=== PATIENT | male | born 1955 | race Caucasian/White ===

== ENCOUNTER 2020-03-31 10:05 | Emergency (ER) | payer OTHER, MEDICAID ==
[~2020-03-31] VITALS: Ht 165.1 cm; Wt 72.6 kg
--- NOTE | 2020-03-31 10:14 | NUR ---
PT IS IN ROOM #1B. DR MARTINEZ EVALUATED THE PT.
[2020-03-31] MEDS: IV NORMAL SALINE 1000 ML BAG IV ONE (10:15)
[2020-03-31] MEDS ORDERED: ASPI81TA31 PO (10:16)
[2020-03-31] MEDS ORDERED: METF-442 PO (10:16)
[2020-03-31] MEDS ORDERED: BP MED (10:28)
[2020-03-31 10:30] LABS: BASOPHILS # (AUTO) 0.1 K/uL (0.0-8.0); BASOPHILS % (AUTO) 0.9 % (0.0-2.0); EOSINOPHILS # (AUTO) 0.2 K/uL (0.0-0.7); EOSINOPHILS % (AUTO) 2.3 % (0.0-7.0); HEMATOCRIT 41.4 % (36.7-47.1); HEMOGLOBIN 12.8 g/dL (12.5-16.3); LYMPHOCYTES # (AUTO) 2.9 K/uL (20.0-40.0); LYMPHOCYTES % (AUTO) 35.7 % (20.5-51.5); MEAN CORPUSCULAR HGB CONC 31 g/dL (32.5-36.3); MEAN CORPUSCULAR VOLUME 71.1 fL (73.0-96.2); MONOCYTES # (AUTO) 0.5 K/uL (2.0-10.0); MONOCYTES % (AUTO) 6.3 % (0.0-11.0); NEUTROPHILS # (AUTO) 4.5 K/uL (1.8-8.9); NEUTROPHILS % (AUTO) 54.8 % (38.5-71.5); PLATELET COUNT (AUTO) 224 K/uL (152-348); RED BLOOD CELL COUNT(AUTO) 5.82 MIL/uL (4.06-5.63); WHITE BLOOD COUNT (AUTO) 8.3 K/uL (3.6-10.2)
[2020-03-31 10:58] LABS: BILIRUBIN,DIRECT 0.1 mg/dL (0.0-0.2); BILIRUBIN,TOTAL 0.4 mg/dL (0.2-1.0); POTASSIUM 4.7 mmol/L (3.5-5.1); TOTAL PROTEIN, SERUM 6.8 g/dL (6.4-8.2)
[2020-03-31] MEDS ORDERED: ONDANSETRON 4 MG/2 ML VIAL ONE (11:16)
[2020-03-31] MEDS: ONDANSETRON 4 MG/2 ML VIAL IV ONE (11:32)
[2020-03-31] MEDS: ASPIRIN 81 MG TAB.CHEW PO ONE (11:32)
[2020-03-31] MEDS ORDERED: TAMS-3 PO (11:35)
[2020-03-31] MEDS ORDERED: LOSA100T31 PO (11:35)
[2020-03-31] MEDS ORDERED: HYDR12.517 PO (11:35)
[2020-03-31] MEDS ORDERED: D3 VITAMIN PO (11:35)
[2020-03-31] MEDS ORDERED: ASPIRIN 81 MG TAB.CHEW ONE (11:57)
[2020-03-31] MEDS: METFORMIN HCL 500 MG TABLET PO ONE (16:24)
[2020-03-31] MEDS ORDERED: METFORMIN HCL 500 MG TABLET ONE (16:25)
--- NOTE | 2020-03-31 17:11 | NUR ---
PT IS GOING TO BE TRANSFERED VIA [facility] TO [facility], ROOM #523A. ADMITTING MD IS DR CORTES. REPORT WAS GIVEN TO MICHELLE DE DIOS ([phone]). [facility] REJI IS 1730. PT IS RESTING COMFOTRTABLY IN BED, NO S/S OF ACUTE DISTRESS. CONTINUE TO MONITOR THE PT.
--- NOTE | 2020-03-31 17:43 | NUR ---
PT WAS TRANSFERED TO [facility] VIA [facility]. REPORT WAS GIVEN TO AMBULANCE RN.
== END 2020-03-31 17:44 | disposition short-term general hospital (02) ==
LOC: ER 10:05
DX: R41.82 Altered mental status, unspecified (principal); R00.1 Bradycardia, unspecified; I44.0 Atrioventricular block, first degree; Z86.73 Personal history of transient ischemic attack (TIA), and cerebral infarction without residual deficits; J45.909 Unspecified asthma, uncomplicated; I10 Essential (primary) hypertension; E11.9 Type 2 diabetes mellitus without complications; Z79.84 Long term (current) use of oral hypoglycemic drugs; Z79.82 Long term (current) use of aspirin; Z82.49 Family history of ischemic heart disease and other diseases of the circulatory system
CPT/HCPCS: 36415; 70450; 71045; 80048; 80076; 83605; 83735; 83880; 84484; 85025; 87426; 93005; 96361; 96374; 99285; J2405; 70030-TC; A4663

== ENCOUNTER 2020-08-24 06:27 | Inpatient (IN) | payer OTHER, MEDICAID ==
[~2020-08-24] VITALS: Ht 170.2 cm; Wt 73.5 kg
[~2020-08-24 06:27] MED LIST: ASPI81TA31 PO; BP MED; D3 VITAMIN PO; HYDR12.517 PO; LOSA100T31 PO; METF-442 PO; TAMS-3 PO
[2020-08-24] MEDS ORDERED: HYDR12.55 PO (06:46)
--- NOTE | 2020-08-24 06:54 | NUR ---
Patient BIB [facility] from home for a near syncope/syncopal event. Patient states that he ambulated to the bathroom approx 30 min [employer] and felt as if he was going to "pass out" when urinating. Patient A/OX4. Speech is clear, and speaks in complete sentences. No acute neuro deficits noted. Denies any cp, palpitations, n/v/d. Denies any KO, or any trauma.
[2020-08-24] MEDS ORDERED: IV NORMAL SALINE 1000 ML BAG IV ONE (07:00)
[2020-08-24 07:04] LABS: BASOPHILS # (AUTO) 0.1 K/uL (0.0-8.0); BASOPHILS % (AUTO) 0.8 % (0.0-2.0); EOSINOPHILS # (AUTO) 0.3 K/uL (0.0-0.7); EOSINOPHILS % (AUTO) 2.8 % (0.0-7.0); HEMATOCRIT 43.3 % (36.7-47.1); HEMOGLOBIN 13.7 g/dL (12.5-16.3); LYMPHOCYTES # (AUTO) 3.8 K/uL (20.0-40.0); LYMPHOCYTES % (AUTO) 40.8 % (20.5-51.5); MEAN CORPUSCULAR HEMOGLOBIN 22.5 uug (23.8-33.4); MEAN CORPUSCULAR HGB CONC 32 g/dL (32.5-36.3); MEAN CORPUSCULAR VOLUME 71.3 fL (73.0-96.2); MONOCYTES # (AUTO) 0.6 K/uL (2.0-10.0); MONOCYTES % (AUTO) 6.6 % (0.0-11.0); NEUTROPHILS # (AUTO) 4.6 K/uL (1.8-8.9); PLATELET COUNT (AUTO) 220 K/uL (152-348); RED BLOOD CELL COUNT(AUTO) 6.07 MIL/uL (4.06-5.63); WHITE BLOOD COUNT (AUTO) 9.3 K/uL (3.6-10.2)
[2020-08-24 07:11] LABS: CREATININE 0.9 mg/dL (0.6-1.3); POTASSIUM 3.8 mmol/L (3.5-5.1)
--- NOTE | 2020-08-24 07:17 | NUR ---
Handoff report given to MICHELLE Bal for continuity of care.
[2020-08-24 07:28] LABS: BILIRUBIN,DIRECT 0.1 mg/dL (0.0-0.2); BILIRUBIN,TOTAL 0.5 mg/dL (0.2-1.0); TOTAL PROTEIN, SERUM 7.1 g/dL (6.4-8.2)
--- NOTE | 2020-08-24 07:58 | NUR ---
Per Dr. Montalvo pt is for tele admission, spoke with tele floor and nursing blood donor recruiter supervisor, there are no beds available and pt will be held in ER until further notice.
--- NOTE | 2020-08-24 09:00 | NUR ---
Pt is awake, alert and oriented. Pt is eating breakfast. NAD noted at this time, pending tele admission.
--- NOTE | 2020-08-24 13:00 | NUR ---
Pt is eating lunch. NAD noted, pending tele admission.
--- NOTE | 2020-08-24 13:30 | NUR ---
Report given to Monica Ortiz.
--- NOTE | 2020-08-24 13:55 | NUR ---
Patient to bathroom independently. Denies any acute distress. Ambulatory and stable. Vital signs within acceptable limits. 130/70-75 [id number]% in room air.
[2020-08-24] MEDS ORDERED: HYDROCHLOROTHIAZIDE 12.5 MG CAPSULE PO SCH (14:15)
[2020-08-24] MEDS ORDERED: TAMSULOSIN HCL 0.4 MG CAP.SR.24H PO SCH ×2 (14:15→21:00)
--- NOTE | 2020-08-24 15:05 | NUR ---
Patient remained in room. Health plan stated that they will transfer since earlier. Awaiting placement; and admitting discussed the bed issue with health plan and requested immediate transfer. Patient denies any pain or discomfort.
[2020-08-24] MEDS: ASPIRIN 81 MG TAB.CHEW PO SCH (15:15)
[2020-08-24] MEDS: HYDROCHLOROTHIAZIDE 25 MG TABLET PO SCH (15:15)
[2020-08-24] MEDS: LOSARTAN POTASSIUM 50 MG TABLET PO SCH (17:00)
[2020-08-24] MEDS: METFORMIN HCL 500 MG TABLET PO SCH (17:00)
--- NOTE | 2020-08-24 18:26 | NUR ---
[facility] transplant case manager called to provide authorization for admission # [id number] (Shelby Naylor). Patient resting comfortably. Medications given as ordered.
[2020-08-24] MEDS ORDERED: METFORMIN HCL 500 MG TABLET ONE (18:34)
[2020-08-24] MEDS ORDERED: HYDROCHLOROTHIAZIDE 25 MG TABLET ONE (18:34)
[2020-08-24] MEDS ORDERED: ASPIRIN 81 MG TAB.CHEW ONE (18:34)
--- NOTE | 2020-08-24 19:08 | NUR ---
Assumed care of patient. No acute distress noted. VSS
[2020-08-24] MEDS ORDERED: ONDANSETRON 4 MG/2 ML VIAL IV PRN (19:30)
[2020-08-24] MEDS ORDERED: MAGNESIUM HYDROXIDE 30 ML LIQUID UDC PO PRN (19:30)
[2020-08-24] MEDS ORDERED: ACETAMINOPHEN 325 MG TABLET PO PRN (19:30)
[2020-08-24] MEDS ORDERED: Z GUARD REMEDY PASTE 57 GM TUBE TOP PRN (19:30)
[2020-08-24] MEDS ORDERED: HYDROCODONE/APAP 5-325MG TABLET PO PRN (19:30)
--- NOTE | 2020-08-24 21:15 | NUR ---
Received admission report from MICHELLE Clark, ER nurse.
--- NOTE | 2020-08-24 21:30 | NUR ---
Received patient from ER via wheelchair. Awake, alert and oriented x 4, verbally responsive. Able to make needs known. Ambulatory, HL on RAC intact and patent. Denies any pain/discomforts at this time. Made comfortable in bed. Routine admission care done. Plan of care initiated. Safety measures and fall prevention initiated. VS taken and recorded.
[2020-08-24 21:50] VITALS: BP 164/74
[2020-08-25] VITALS (8 sets, daily range): BP systolic 120–160; BP diastolic 63–89
--- NOTE | 2020-08-25 06:50 | NUR ---
Shift End Report: No significant event reported all night. Continue current plan of care. Vs stable.
--- NOTE | 2020-08-25 07:30 | NUR ---
Awake, alert, oriented x 4. Denies chest pain, dizziness. Not in distress
[2020-08-25 07:46] LABS: BASOPHILS # (AUTO) 0.1 K/uL (0.0-8.0); BASOPHILS % (AUTO) 1.1 % (0.0-2.0); EOSINOPHILS # (AUTO) 0.3 K/uL (0.0-0.7); EOSINOPHILS % (AUTO) 2.8 % (0.0-7.0); HEMATOCRIT 43.3 % (36.7-47.1); HEMOGLOBIN 13.8 g/dL (12.5-16.3); LYMPHOCYTES # (AUTO) 3.4 K/uL (20.0-40.0); LYMPHOCYTES % (AUTO) 38.2 % (20.5-51.5); MEAN CORPUSCULAR HEMOGLOBIN 22.9 uug (23.8-33.4); MEAN CORPUSCULAR HGB CONC 32 g/dL (32.5-36.3); MEAN CORPUSCULAR VOLUME 71.8 fL (73.0-96.2); MONOCYTES # (AUTO) 0.8 K/uL (2.0-10.0); MONOCYTES % (AUTO) 8.8 % (0.0-11.0); NEUTROPHILS # (AUTO) 4.4 K/uL (1.8-8.9); NEUTROPHILS % (AUTO) 49.1 % (38.5-71.5); PLATELET COUNT (AUTO) 197 K/uL (152-348); RED BLOOD CELL COUNT(AUTO) 6.03 MIL/uL (4.06-5.63); WHITE BLOOD COUNT (AUTO) 8.9 K/uL (3.6-10.2)
[2020-08-25 07:49] LABS: CREATININE 0.9 mg/dL (0.6-1.3); MAGNESIUM 1.8 mg/dL (1.8-2.4); PHOSPHOROUS 4.1 mg/dL (2.5-4.9); POTASSIUM 3.7 mmol/L (3.5-5.1)
[2020-08-25] MEDS ORDERED: ENOXAPARIN SODIUM 40 MG/0.4 ML DISP.SYRIN SQ SCH (09:00)
[2020-08-25] MEDS: ASPIRIN 81 MG TAB.CHEW PO SCH (09:05)
[2020-08-25] MEDS: LOSARTAN POTASSIUM 50 MG TABLET PO SCH (09:06)
[2020-08-25] MEDS: METFORMIN HCL 500 MG TABLET PO SCH ×2 (09:06→18:42)
[2020-08-25] MEDS: HYDROCHLOROTHIAZIDE 25 MG TABLET PO SCH (09:07)
--- NOTE | 2020-08-25 10:00 | NUR ---
Echocardiogram done at bedside
--- NOTE | 2020-08-25 15:36 | NUR ---
Waiting for cardiology consult, patient informed, [place] CM informed
--- NOTE | 2020-08-25 18:44 | NUR ---
Seen by Dr. Carolina and will speak with Cece. Orthostatic BP done and recorded.
--- NOTE | 2020-08-25 20:10 | NUR ---
Patient is D/C. V/S stable. Picked up by daughter at the lobby.
== END 2020-08-25 22:46 | disposition home or self-care (01) | DRG 312 ==
LOC: ER 06:32 → TELE3 21:12
PROVIDERS: ADMIT Nurse Practitioner Acute Care; ATTEND Nurse Practitioner Acute Care
DX: R55 Syncope and collapse (principal); E11.9 Type 2 diabetes mellitus without complications; E78.5 Hyperlipidemia, unspecified; E86.0 Dehydration; I10 Essential (primary) hypertension; J45.909 Unspecified asthma, uncomplicated; N40.0 Benign prostatic hyperplasia without lower urinary tract symptoms; Z79.84 Long term (current) use of oral hypoglycemic drugs; Z86.73 Personal history of transient ischemic attack (TIA), and cerebral infarction without residual deficits
CPT/HCPCS: 36415; 70030-TC; 71045; 73130; 83735; 84100; 85025; 93005; 93307; 93880; A4663; G0378; J1650; J7030